=== PATIENT | male | born 1965 | race African-American/Black ===

== ENCOUNTER 2017-02-02 16:54 | Emergency (ER) | payer OTHER ==
[~2017-02-02] VITALS: Ht 315 cm; Wt 120.6 kg
[2017-02-02 17:01] VITALS: Ht 315 cm; Wt 120.6 kg
[2017-02-02] MEDS ORDERED: ACETAMINOPHEN 500 MG TAB PO STA (17:16)
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
[2017-02-02] MEDS ORDERED: OXYCODONE/ACETAMINOPHEN 5-325 TAB PO STA (19:14)
[2017-02-02] MEDS ORDERED: CYCLOBENZAPRINE HCL 10 MG TAB PO STA (19:14)
[2017-02-02] MEDS ORDERED: OXYC-57 PO (19:18)
[2017-02-02] MEDS ORDERED: CYCL10TA6 PO (19:18)
[2017-02-02 19:30] LABS: URINE APPEARANCE CLEAR (CLEAR); URINE BILIRUBIN NEG (NEG); URINE COLOR YELLOW; URINE EPITHELIAL CELL AUTO 0-5 /lpf (0-5); URINE NITRITE NEG (NEG); URINE PH 5.5 (4.5-7.5); URINE SPECIFIC GRAVITY 1.016 (1.000-1.030); UROBILINOGEN NEG (NEG)
[2017-02-02 19:32] LABS: MANUAL MICROSCOPIC REQUIRED? NO; REVIEW REQ? NO
[2017-02-02] MEDS ORDERED: OPTIRAY 320 IV PRN (20:00)
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
[2017-02-02 21:26] VITALS: BP 160/104; PULSE 63; TEMP 36.8; O2SAT 97
== END 2017-02-02 21:27 | disposition home or self-care (01) ==
LOC: C.EDC 16:56
DX: R51 Headache (principal); M54.5 Low back pain; V49.59XA Passenger injured in collision with other motor vehicles in traffic accident, initial encounter; Y92.411 Interstate highway as the place of occurrence of the external cause; R31.9 Hematuria, unspecified; M25.552 Pain in left hip; R20.0 Anesthesia of skin; F17.200 Nicotine dependence, unspecified, uncomplicated